=== PATIENT | female | born 1995 | race Caucasian/White ===

== ENCOUNTER 2024-03-14 01:33 | Inpatient (IN) | payer OTHER, SELFPAY ==
[2024-03-14 01:38] VITALS: BMI 31.9
[2024-03-14 01:57] VITALS: BP 133/87
[2024-03-14 02:32] LABS: % Basophils 0.2 % (0-2); % Eosinophils 0.4 % (0-6); % Immature Granulocytes 0.5 % (0-0.5); % Lymphocytes 16.5 % (20.5-51.1); % Monocytes 5.6 % (1.7-9.3); % Neutrophils 76.8 % (42.2-75.2); Absolute Eosinophils 0.1 10^3/uL (0-0.7); Absolute Immature Granulocytes 0.1 10^3/uL (0-0.05); Absolute Lymphocytes 2.2 10^3/uL (1.2-3.4); Absolute Monocytes 0.8 10^3/uL (0.1-0.6); Absolute Neutrophils 10.3 10^3/uL (1.4-6.5); Hematocrit 33.9 % (37.0-47.0); Hemoglobin 11.8 g/dL (12.0-16.0); Mean Corp Hgb Conc. 34.8 g/dL (33.0-37.0); Mean Corpuscular Hgb 28.6 pg (27.0-31.0); Mean Corpuscular Volume 82.1 fL (81.0-99.0); Mean Platelet Volume 10.8 fL (7.4-10.4); Nucleated Red Blood Cells % 0 %; Platelet Count 301 10^3/uL (130-400); Red Blood Cell Count 4.13 10^6/uL (4.20-5.40); Red Cell Dist. Width 13.2 % (11.5-14.5); White Blood Cell Count 13.5 10^3/uL (4.8-10.8)
[2024-03-14] MEDS: FENTANYL/BUPIVACAINE 100 EPIDURAL (05:01)
[2024-03-14] MEDS: SUBLIMAZE 100 MCG EPIDURAL (05:01)
[2024-03-14] MEDS: TYLENOL 1000 MG PO (11:00)
[2024-03-14] MEDS: TYLENOL 650 MG PO (16:44)
[2024-03-14] MEDS: MOTRIN 600 MG PO (16:44)
[2024-03-15 04:40] LABS: Hematocrit 30.3 % (37.0-47.0); Hemoglobin 10.1 g/dL (12.0-16.0)
[2024-03-15] MEDS: MOTRIN 600 MG PO ×2 (06:02→20:19)
[2024-03-15] MEDS: SENOKOT-S 1 TABLET PO (08:38)
[2024-03-15] MEDS: FEOSOL 325 MG PO ×2 (08:38→20:11)
[2024-03-15] MEDS: PRENATAL PLUS 1 TABLET PO (08:38)
[2024-03-15 15:35] LABS: Syphilis/T. pallidum Ab Reflex Negative (Negative)
[2024-03-16] MEDS: FEOSOL 325 MG PO (09:33)
[2024-03-16] MEDS: PRENATAL PLUS 1 TABLET PO (09:33)
[2024-03-16] MEDS: SENOKOT-S 1 TABLET PO (09:33)
[2024-03-16] MEDS: M-M-R II 0.5 ML SC (12:07)
== END 2024-03-16 13:06 | disposition home or self-care (01) | DRG 807 ==
LOC: LDRP 01:33
PROVIDERS: Obstetrics & Gynecology; ADMITTING PHYSICIAN Obstetrics & Gynecology; FAMILY PHYSICIAN Internal Medicine
PROC: 0KQM0ZZ Repair Perineum Muscle, Open Approach (ICD-10-PCS; 2024-03-14)
PROC: 10E0XZZ Delivery of Products of Conception, External Approach (ICD-10-PCS; 2024-03-14)
PROC: 3E0134Z Introduction of Serum, Toxoid and Vaccine into Subcutaneous Tissue, Percutaneous Approach (ICD-10-PCS; 2024-03-16)
DX: O42.02 Full-term premature rupture of membranes, onset of labor within 24 hours of rupture (principal); Z37.0 Single live birth; O48.0 Post-term pregnancy; Z3A.40 40 weeks gestation of pregnancy; O70.1 Second degree perineal laceration during delivery; O76 Abnormality in fetal heart rate and rhythm complicating labor and delivery; O69.81X0 Labor and delivery complicated by cord around neck, without compression, not applicable or unspecified; Z23 Encounter for immunization
CPT/HCPCS: 85014; 85018; 85025; 86780; 86850; 86900; 86901; 90707